=== PATIENT | female | born 2000 | race African-American/Black ===

== ENCOUNTER 2025-04-26 18:10 | Emergency (ER) | payer OTHER ==
[~2025-04-26] VITALS: Ht 162.6 cm; Wt 76.8 kg
[2025-04-26 18:14] VITALS: BP 108/62; PULSE 61; RESP 16; TEMP 97.8; O2SAT 98
== END 2025-04-26 20:02 | disposition left against medical advice (07) ==
LOC: EMS 18:10
DX: R10.9 Unspecified abdominal pain (principal); Z53.21 Procedure and treatment not carried out due to patient leaving prior to being seen by health care provider